=== PATIENT | male | born 1985 | race Caucasian/White ===

== ENCOUNTER 2017-10-11 03:05 | Inpatient (IN) | payer OTHER ==
[~2017-10-11] VITALS: Ht 170.2 cm; Wt 79.5 kg
[~2017-10-11 03:05] MED LIST: CITALOPRAM HYDR20 M1 PO; SEROQUEL XR200 M1 PO
[2017-10-11 05:48] LABS: BASOPHIL % 0.5 % (0-2); PLATELET COUNT 301 x10^3mcL (130-400); RED CELL DISTRIBUTION WIDTH 12.4 % (11.5-14.5)
[2017-10-11] MEDS ORDERED: MIRTAZAPINE15 M2 PO (05:51)
[2017-10-11] MEDS ORDERED: TRAZODONE50 M1 PO (05:52)
[2017-10-11] MEDS ORDERED: OLANZAPINE20 M1 PO (05:53)
[2017-10-11] MEDS ORDERED: RISPERIDONE2 M1 PO (05:53)
[2017-10-11 06:06] LABS: ALBUMIN 3.5 g/dL (3.4-5.0); ALKALINE PHOSPHATASE 63 U/L (46-116); ALT/SGPT 23 U/L (16-63); AST/SGOT 13 U/L (15-37); BILIRUBIN TOTAL 0.4 mg/dL (0.20-1.00); CALCIUM 8.3 mg/dL (8.5-10.1); CARBON DIOXIDE 28.3 mmol/L (21-32); CHLORIDE SERUM 105 mmol/L (98-107); GFR1 > 60 mL/min; GLUCOSE SERUM 119 mg/dL (74-106); LIPASE 105 IU/L (73-393); POTASSIUM SERUM 4.5 mmol/L (3.5-5.1); SODIUM SERUM 140 mmol/L (136-145); TOTAL PROTEIN, SERUM 6.8 g/dL (6.4-8.2)
[2017-10-11 07:07] LABS: MAGNESIUM 2.2 mg/dL (1.8-2.4); PHOSPHOROUS 2.1 mg/dL (2.5-4.9)
[2017-10-11 07:21] LABS: FREE T4 0.96 ng/dL (0.76-1.46); FREE THYROXINE INDEX 2.4 ug/dL (1.4-4.5); T4(THYROXINE) 7.1 ug/dL (4.7-13.3)
[2017-10-11 07:47] LABS: T3 TOTAL 1.37 ng/mL
[2017-10-11 08:25] VITALS: BP 114/67
[2017-10-11 10:36] LABS: microscopic required? NO
[2017-10-11 10:53] LABS: urine erythrocyte NEGATIVE (NEGATIVE)
[2017-10-11 11:28] LABS: AMPHETAMINE QUAL UR NONE DETECTED (NEG <=1000)
[2017-10-11 13:10] VITALS: BP 122/64
[2017-10-11 17:51] VITALS: BP 126/74
[2017-10-11 20:53] VITALS: BP 138/86
[2017-10-12 05:44] VITALS: BP 101/55
[2017-10-12 07:20] LABS: CALCIUM 8.9 mg/dL (8.5-10.1); CHLORIDE SERUM 108 mmol/L (98-107); CREATININE SERUM 1.1 mg/dL (0.7-1.3); GFR1 > 60 mL/min; GLUCOSE SERUM 101 mg/dL (74-106); PHOSPHOROUS 3.6 mg/dL (2.5-4.9); POTASSIUM SERUM 4.3 mmol/L (3.5-5.1); SODIUM SERUM 140 mmol/L (136-145)
[2017-10-12 07:23] LABS: BASOPHIL % 0.6 % (0-2); PLATELET COUNT 275 x10^3mcL (130-400); RED CELL DISTRIBUTION WIDTH 12.8 % (11.5-14.5)
[2017-10-12 09:09] VITALS: BP 119/67
[2017-10-12 12:00] VITALS: BP 143/81
[2017-10-12 16:47] VITALS: BP 122/69
[2017-10-12 21:13] VITALS: BP 126/67
[2017-10-13 05:01] VITALS: BP 98/49
[2017-10-13 07:00] LABS: BASOPHIL % 0.7 % (0-2); PLATELET COUNT 293 x10^3mcL (130-400); RED CELL DISTRIBUTION WIDTH 12.9 % (11.5-14.5)
[2017-10-13 07:11] LABS: CALCIUM 8.5 mg/dL (8.5-10.1); CARBON DIOXIDE 25.4 mmol/L (21-32); CHLORIDE SERUM 106 mmol/L (98-107); CREATININE SERUM 0.9 mg/dL (0.7-1.3); GFR1 > 60 mL/min; GLUCOSE SERUM 105 mg/dL (74-106); MAGNESIUM 2.1 mg/dL (1.8-2.4); PHOSPHOROUS 3.9 mg/dL (2.5-4.9); SODIUM SERUM 139 mmol/L (136-145)
[2017-10-13 09:00] VITALS: BP 118/72
[2017-10-13] MEDS ORDERED: NORCO1 TA2 PO (11:45)
[2017-10-13] MEDS ORDERED: COLACE100 MG PO ×2 (12:23→12:26)
[2017-10-13 13:46] VITALS: BP 118/72
[2017-10-13 14:22] VITALS: BP 126/73
== END 2017-10-13 16:28 | disposition home or self-care (01) | DRG 263 ==
LOC: ED 03:05 → DU 05:45
PROVIDERS: Emergency Medicine; ADMIT Family Medicine
PROC: 0FT44ZZ Resection of Gallbladder, Percutaneous Endoscopic Approach (ICD-10-PCS; principal; 2017-10-11)
DX: K80.00 Calculus of gallbladder with acute cholecystitis without obstruction (principal); E83.39 Other disorders of phosphorus metabolism; F20.9 Schizophrenia, unspecified; F32.9 Major depressive disorder, single episode, unspecified; E83.51 Hypocalcemia; E78.1 Pure hyperglyceridemia; Z88.0 Allergy status to penicillin; F17.200 Nicotine dependence, unspecified, uncomplicated
CPT/HCPCS: 83880; 84439; 94150; J0744; J1170; J3010; J3490; J7030; Q0092